=== PATIENT | male | born 1980 | race Hispanic/Latino ===

== ENCOUNTER 2017-06-08 19:52 | Emergency (ER) | payer OTHER ==
[2017-06-08 20:23] VITALS: BP 137/90; PULSE 64; RESP 18; TEMP 97.3; O2SAT 98
--- NOTE | 2017-06-08 22:07 | ED PDOC ---
HPI: Chest Pain Time Seen by Provider: 06/08/17 22:05 Chief Complaint (Nursing): Chest Pain Chief Complaint (Provider): Rib Pain History Per: Patient History/Exam Limitations: no limitations Onset/Duration Of Symptoms: Hrs (1), Waxing/Waning, Other (prior to arrival) Current Symptoms Are (Timing): Still Present Quality: Sharp Additional Complaint(s): 36 y/o male with no significant pmhx, who presents to the ED for evaluation of a rib injury prior to arrival. Patient states he was practicing juGiveou when he folded over while upside down and "felt a rib pop". Patient is complaining of pain to his left rib area. Denies any other complaints at this time. Past Medical History Reviewed: Historical Data, Nursing Documentation, Vital Signs Vital Signs: Last Vital Signs Temp 97.3 F L 06/08/17 20:20 Pulse 64 06/08/17 20:20 Resp 18 06/08/17 20:20 BP 137/90 06/08/17 20:20 Pulse Ox 98 06/08/17 23:01 - Medical History PMH: No Chronic Diseases - Surgical History Surgical History: No Surg Hx - Family History Family History: States: Unknown Family Hx - Home Medications Home Medications: Ambulatory Orders Medication Instructions Recorded Ibuprofen [Motrin] 600 mg PO Q6 PRN #20 tab 04/01/14 Oxycodone HCl/Acetaminophen 1 tab PO Q4 #4 tab 04/01/14 [Percocet 325 mg-5 mg] - Allergies Allergies/Adverse Reactions: Allergies Allergy/AdvReac Type Severity Reaction Status Date / Time No Known Allergies Allergy Verified 04/01/14 16:55 Review of Systems ROS Statement: Except As Marked, All Systems Reviewed And Found Negative Musculoskeletal: Positive for: Other (left rib pain) Physical Exam - Reviewed Nursing Documentation Reviewed: Yes Vital Signs Reviewed: Yes - Physical Exam Appears: Positive for: Non-toxic, No Acute Distress, Uncomfortable Head Exam: Positive for: ATRAUMATIC, NORMAL INSPECTION, NORMOCEPHALIC Skin: Positive for: Normal Color, Warm Eye Exam: Positive for: Normal appearance Cardiovascular/Chest: Positive for: Regular Rate, Rhythm, Other (tenderness to area of 7th, 8th, and 9th ribs) Respiratory: Positive for: Normal Breath Sounds. Negative for: Decreased Breath Sounds, Accessory Muscle Use, Rales, Rhonchi, Stridor, Wheezing, Respiratory Distress, Plerual Rub Pulses-Carotid (L): 2+ Pulses-Carotid (R): 2+ Neurologic/Psych: Positive for: Alert, Oriented - ECG O2 Sat by Pulse Oximetry: 98 (RA) Pulse Ox Interpretation: Normal Medical Decision Making Medical Decision Makin:00 Initial Impression: R/o fracture over bruise Plan: -Left Chest X-Ray: NO FX. NO Pneumothorax -Ibuprofen PO -Reevaluation Scribe Attestation: Documented by Lenny Linder, acting as a scribe for Kade Evans PA-C. Provider Scribe Attestation: All medical record entries made by the Scribe were at my direction and personally dictated by me. I have reviewed the chart and agree that the record accurately reflects my personal performance of the history, physical exam, medical decision making, and the department course for this patient. I have also personally directed, reviewed, and agree with the discharge instructions and disposition. Disposition - Clinical Impression Clinical Impression: Rib contusion - Patient ED Disposition Is Patient to be Admitted: No Counseled Patient/Family Regarding: Studies Performed, Diagnosis, Need For Followup, Rx Given - Disposition Disposition: Routine/Home Disposition Time: 23:00 Condition: GOOD Additional Instructions: Tylenol #3 for pain at night Tylenol 650mg every 8 hours Ibuprofen 600mg every 6 hours for pain Instructions: Contusion (DC), Bruised Rib (DC), Bruised Rib Forms: [employer] ([place])
--- NOTE | 2017-06-09 08:41 | RAD ---
PROCEDURE: Radiographs of the Chest and Left Ribs. HISTORY: r/o fx COMPARISON: None available. TECHNIQUE: Frontal radiograph of the chest and multiple oblique radiographs of the left ribs were obtained. FINDINGS: LEFT RIBS: No fracture or focal lesion visualized. LUNGS: Clear. PLEURA: No pneumothorax or pleural fluid. CARDIOVASCULAR: Normal sized heart. No pulmonary vascular congestion. OTHER FINDINGS: None. IMPRESSION: Unremarkable radiographs of the chest and left ribs. No left rib fracture.
== END 2017-06-08 23:20 | disposition home or self-care (01) ==
LOC: H.ER 19:52
DX: S20.219A Contusion of unspecified front wall of thorax, initial encounter (principal); W22.8XXA Striking against or struck by other objects, initial encounter; Y92.89 Other specified places as the place of occurrence of the external cause